=== PATIENT | female | born 1975 | race Hispanic/Latino ===

== ENCOUNTER 2017-09-13 17:02 | Emergency (ER) | payer BC ==
[~2017-09-13] VITALS: Ht 154.9 cm; Wt 79.4 kg
[2017-09-13] MEDS ORDERED: AVAPRO75 MG PO (17:25)
[2017-09-13] MEDS ORDERED: METHOTREXATE2.5 MG PO (17:25)
[2017-09-13] MEDS ORDERED: TOPROL XL50 MG PO (17:25)
[2017-09-13] MEDS ORDERED: PLAQUENIL200 MG PO (17:26)
[2017-09-13] MEDS ORDERED: ONDANSETRON ODT8 MG PO (18:59)
== END 2017-09-13 19:15 | disposition home or self-care (01) ==
LOC: ED 17:02
DX: K52.9 Noninfective gastroenteritis and colitis, unspecified (principal); K21.9 Gastro-esophageal reflux disease without esophagitis; Z79.899 Other long term (current) drug therapy
CPT/HCPCS: 80053; 81001; 84703; 85025; 96361; 96374; 99283; J2405; J7030

== ENCOUNTER 2018-07-07 19:37 | Emergency (ER) | payer BC ==
[~2018-07-07] VITALS: Ht 154.9 cm; Wt 79.4 kg
--- OUTSIDE RECORDS SUMMARY | ~2018-07-07 | XMS | Encounter Summary ---
Demographics + + + | Address | [address] | | | [place] [address] | + + + | Home Phone | | + + + | Preferred Language | Unknown | + + + | Marital Status | | + + + | Yarsanism Affiliation | Unknown | + + + | Race | Unknown | + + + | Ethnic Group | Unknown | + + + Author + + + | Author | [facility] | + + + | Organization | [facility] | + + + | Address [...] Team Providers + +------+ + | Care Gyn Physician Name | Role | Phone | + +------+ + PCP | Unavailable | + +------+ + Encounter Details +--------+--------+ + + + | Date | Type | Department | Care Team | Description | +--------+--------+ + + + | 05/07/ | Refill | [facility] | Brent Randolph, | Rheumatoid arthritis | | 2019 | | Rheumatology [address] | RN | of multiple sites | | | | [place] | | with negative | | | | [place] [address] | | rheumatoid factor | | | | [phone] | | (HCC) | +--------+--------+ + + + Social History + +-------+ [...] + + + as of this encounter Plan of Treatment +--------+---------+ + + + | Date | Type | Specialty | Care Team | Description | +--------+---------+ + + + | 07/08/ | Office | Rheumatology | Eduin, | High risk medication | | 2019 | Visit | | JULIANA Dailey [address] | use (Primary Dx); | | | | | [facility] | Rheumatoid arthritis | | | | | [place] [address] | of multiple sites | | | | | [phone] | with negative | | | | | | rheumatoid factor | | | | | | ([facility]); Long-term use | | | | | | of high-risk | | | | | | medication | +--------+---------+ + + + as of this encounter Visit Diagnoses + + | Diagnosis | + + | Rheumatoid arthritis of multiple sites with negative rheumatoid factor (HCC) | + +"
--- OUTSIDE RECORDS SUMMARY | ~2018-07-07 | XMS | Clinical Summary ---
Demographics + + + | Address | [address] | | | [place] [address] | + + + | Home Phone | | + + + | Preferred Language | Unknown | + + + | Marital Status | | + + + | Methodist Affiliation | Unknown | + + + | Race | Unknown | + + + | Ethnic Group | Unknown | + + + Author + + + | Author | [facility] | + + + | Organization | [facility] | + + + | Address [...] Team Providers + +------+ + | Care Lard Mixer Name | Role | Phone | + +------+ + PP | Unavailable | + +------+ + Allergies No Known Allergies Current Medications + + +--------+---------+------+------+-------+ | Prescription | Sig. | Disp. | Refills | Star | End | Statu | | | | | | t | Date | s | | | | | | Date | | | + + +--------+---------+------+------+-------+ | METOPROLOL | Take 50 mg by mouth. | | | | | Activ | | TARTRATE PO | | | | | | e | + + +--------+---------+------+------+-------+ | omeprazole | Take 20 mg by mouth | | | | | Activ | | (PRILOSEC) 20 MG EC | before breafast. | | | | | e | | tablet | | | | | | | + + +--------+---------+------+------+-------+ | | Take by mouth | | | | | Activ | | norethindrone-ethiny | daily. | | | | | e | | l estradiol-iron | | | | | | | | (ESTROSTEP FE) | | | | | | | | 1-31/03-10/04-35 | | | | | | | | MG-MCG TABS | | | | | | | + + +--------+---------+------+------+-------+ | methotrexate 2.5 | take 8 tablets by | 32 | 1 | / | | Activ | | MG | moutn once a week | tablet | | 07/29 | | e | | tabletIndications: | | | | 19 | | | | Rheumatoid Arthritis | | | | | | | + + +--------+---------+------+------+-------+ | diclofenac | Take 1 tablet by | 60 | 2 | / | | Activ | | (VOLTAREN) 75 MG EC | mouth 2 (two) times | tablet | | 6/20 | | e | | tabletIndications: | daily. | | | 19 | | | | Rheumatoid arthritis | | | | | | | | of multiple sites | | | | | | | | with negative | | | | | | | | rheumatoid factor | | | | | | | | ([facility]) | | | | | | | + + +--------+---------+------+------+-------+ | folic acid | Take 1 tablet by | 90 | 3 | / | | Activ | | (FOLVITE) 1 MG | mouth daily. | tablet | | 6/20 | | e | | tablet | | | | 19 | | | + + +--------+---------+------+------+-------+ | hydroxychloroquine | Take 2 tablets by | 60 | 2 | /2 | | Activ | | (PLAQUENIL) 200 MG | mouth daily. | tablet | | 6/20 | | e | | tabletIndications: | | | | 19 | | | | Rheumatoid arthritis | | | | | | | | of multiple sites | | | | | | | | with negative | | | | | | | | rheumatoid factor | | | | | | | | ([facility]) | | | | | | | + + +--------+---------+------+------+-------+ Active Problems + + + | Problem | Noted Date | + + + | Plantar fasciitis | 04/27/2017 | + + + + + | Last Assessment & Plan: Treatment options discussed. Continue | | conservative measures and if no improvement in 10-14 days, | | contact our office, consider referral to podiatry | + + + + + | Chronic left shoulder pain | 05/17/2015 | + + + + + | Last Assessment & Plan: Treatment options discussed- verbal | | consent givenInject L subacromial bursa today 40 mg of | | kenalog/LidocaineInstructed on post injection care and if no | | improvement in 101-4 days, notify our office | + + + + + | Rheumatoid arthritis of multiple sites with negative rheumatoid | 01/11/2015 | | factor (HCC) | | + + + + + | Last Assessment & Plan: No clinical evidence of active | | disease on today's examThe risks and benefits of treatment plan | | were discussed with her today.Continue Plaquenil 400 mg qd- send | | copy [facility] in [place] in | | 2018Continue methotrexate 20 mg once per weekContinue diclofenac | | 50 mg BID prnReturn to clinic 3-4 months | + + + + + | High risk medication use | 01/11/2015 | + + + + + | Last Assessment & Plan: Update labs today and continue to | | monitor closely while on DMARD and/or biologic medication. | | Counseled regarding medication compliance as well as potential | | toxicities with medications such as cytopenias, liver | | abnormalities and risks for infection, and the need for routine | | blood work monitoring. | + + Resolved Problems + + + + | Problem | Noted | Resolved | | | Date | Date | + + + + | Abnormal laboratory test result | 05/17/19 | | | | 16 | 7 | + + + + Encounters +--------+ + + + + | Date | Type | Specialty | Care Team | Description | +--------+ + + + + | 05/24/ | Documentati | | Eduin, | Other (FMLA) | | 2019 | on Only | | JULIANA Dailey | | +--------+ + + + + | 05/24/ | Telephone | | Eduin, | | | 2019 | | | JULIANA Dailey | | +--------+ + + + + | 05/07/ | Refill | | Brent Randolph, | Rheumatoid arthritis | | 2019 | | | RN | of multiple sites | | | | | | with negative | | | | | | rheumatoid factor | | | | | | (HCC) | +--------+ + + + + | 05/06/ | Documentati | | Rajinder Santillan | Other (Tricity | | 2019 | on Only | | TELMA Dee | Ortho; clinic notes) | +--------+ + + + + from Last 3 Months Social History + +-------+ +--------+------+ | Tobacco [...] on file | | + + + Last Filed Vital Signs + + + + | Vital Sign | Reading | Time Taken | + + + + | Blood Pressure | 152/87 | 04/01/2018 2:04 PM PST | + + + + | Pulse | 66 | 04/01/2018 2:04 PM PST | + + + + | Temperature | 36.4 C (97.6 F) | 04/01/2018 2:04 PM PST | + + + + | Respiratory Rate | 12 | 04/27/2017 1:32 PM PST | + + + + | Oxygen Saturation | 98% | 04/27/2017 1:32 PM PST | + + + + | Inhaled Oxygen | - | - | | Concentration | | | + + + + | Weight | 79.8 kg (176 lb) | 04/01/2018 2:04 PM PST | + + + + | Height | 154.9 cm (5' 1") | 04/01/2018 2:04 PM PST | + + + + | Body Mass Index | 33.25 | 04/01/2018 2:04 PM PST | + + + + Plan of Treatment +--------+---------+ + + + | Date | Type | Specialty | Care Team | Description | +--------+---------+ + + + | 07/08/ | Office | | Eduin, | High risk medication | | 2018 | Visit | | JULIANA Dailey [address] | use (Primary Dx); | | | | | [facility] | Rheumatoid arthritis | | | | | [place] [address] | of multiple sites | | | | | [phone] | with negative | | | | | | rheumatoid factor | | | | | | (HCC); Long-term use | | | | | | of high-risk | | | | | | medication | +--------+---------+ + + + + + + + + | Health Maintenance | Due Date | Last Done | Comments | + + + + + | Vaccine: | | | | | Dtap/Tdap/Td (1 - | 3 | | | | Tdap) | | | | + + + + + | Cervical Cancer | | | | | Screening (Pap) | 4 | | | + + + + + | Vaccine: Influenza | | | | | (Season Ended) | 9 | | | + + + + + Results Not on filefrom Last 3 Months Insurance +---------+--------+ +------+-------+ + | Payer | Benefi | Subscriber | Type | Phone | Address | | | t Plan | ID | | | | | | / | | | | | | | Group | | | | | +---------+--------+ +------+-------+ + | PREMERA | PREMER | [id number] | | | [address] [address] | | | A BLUE | [address] | | | [place], [place] | | | CARD | | | | [phone] | +---------+--------+ +------+-------+ + + +--------+ +--------+ + + | Guarantor Name | Accoun | Relation to | Date | Phone | Billing Address | | | t Type | Patient | of | | | | | | | | | | + +--------+ +--------+ + + | DEANNA VARGAS | Person | Self | [birth year] | Home: | [address] | | | al/Tahir | | 1976 | [phone] | [place] [address] | | | ozzy | | [phone] | | + +--------+ +--------+ + +
--- OUTSIDE RECORDS SUMMARY | ~2018-07-07 | XMS | Encounter Summary ---
Demographics + + + | Address | [address] | | | [place] [address] | + + + | Home Phone | | + + + | Preferred Language | Unknown | + + + | Marital Status | | + + + | Jain Affiliation | Unknown | + + + | Race | Unknown | + + + | Ethnic Group | Unknown | + + + Author + + + | Author | [facility] | + + + | Organization | [facility] | + + + | Address [...] Team Providers + +------+ + | Care Electrical Technician Instructor Name | Role | Phone | + [...] + + | 05/06/ | Documentati | [facility] | Rajinder Santillan | Other (Tricity | | 2019 | on Only | Rheumatology [address] | [place] | [place]; clinic notes) | | | | [address] | | | | | | [place] [address] | | | | | | [phone] | | | +--------+ + + + [...] of this encounter Progress Notes Rajinder Santillan, [facility] - 05/06/2018 11:59 PM PSTINCOMING:Clinic Notes FROM: Barbi Crouch DOS: 05/06/2018 REVIEWED BY:MICK STATUS: ready to scan SENT TO SCANNING ON: 05/24/2018 in this encounter Plan of Treatment +--------+---------+ + + + | Date | Type | Specialty | Care Team | Description | +--------+---------+ + + + | 07/08/ | Office | Rheumatology | Eduin, | High risk medication | | 2018 | Visit | | JULIANA Dailey [address] | use (Primary Dx); | | | | | [facility] | Rheumatoid arthritis | | | | | [place] [address] | of multiple sites | | | | | [phone] | with negative | | | | | | rheumatoid factor | | | | | | ([facility]); Long-term use | | | | | | of high-risk | | | | | | medication | +--------+---------+ + + + as of this encounter Visit Diagnoses Not on filein this encounter"
--- OUTSIDE RECORDS SUMMARY | ~2018-07-07 | XMS | Encounter Summary ---
Demographics + + + | Address | [address] | | | [place] [address] | + + + | Home Phone | | + + + | Preferred Language | Unknown | + + + | Marital Status | | + + + | Amish Affiliation | Unknown | + + + | Race | Unknown | + + + | Ethnic Group | Unknown | + + + Author + + + | Author | [facility] | + + + | Organization | [facility] | + + + | Address [...] Team Providers + +------+ + | Care Scrap Charger Name | Role | Phone | + +------+ + PCP | Unavailable | + +------+ + Encounter Details +--------+ + + + + | Date | Type | Department | Care Team | Description | +--------+ + + + + | 05/24/ | Telephone | [facility] | Eduin, | | | 2019 | | Rheumatology [address] | JULIANA Dailey [address] | | | | | [place] | [facility] | | | | | [place] [address] | [place] [address] | | | | | [phone] | [phone] | | | | | | | [...] | 07/08/ | Office | Rheumatology | Eduin | High risk medication | | 2019 | Visit | | JULIANA Dailey [address] | use (Primary Dx); | | | | | [facility] | Rheumatoid arthritis | | | | | [place] [address] | of multiple sites | | | | | [phone] | with negative | | | | | | rheumatoid factor | | | | | | (HCC); Long-term use | | | | | | of high-risk | | | | | | medication | +--------+---------+ + + + as of this encounter Visit Diagnoses Not on filein this encounter"
--- OUTSIDE RECORDS SUMMARY | ~2018-07-07 | XMS | Encounter Summary ---
Demographics + + + | Address | [address] | | | [place] [address] | + + + | Home Phone | | + + + | Preferred Language | Unknown | + + + | Marital Status | | + + + | Jain Affiliation | Unknown | + + + | Race | Unknown | + + + | Ethnic Group | Unknown | + + + Author + + + | Author | [facility] | + + + | Organization | [facility] | + + + | Address [...] Team Providers + +------+ + | Care Roller Printer Name | Role | Phone | + +------+ + PCP | Unavailable | + +------+ + Encounter Details +--------+ + + + + | Date | Type | Department | Care Team | Description | +--------+ + + + + | 05/24/ | Telephone | [facility] | Eduin, | | | 2019 | | Rheumatology [address] | JULIANA Dailey [address] | | | | | [place] | [facility] | | | | | [place] [address] | [place] [address] | | | | | [phone] | [phone] | | | | | | | [...] 2019 | Visit | | JULIANA Dailey 3[address] | use (Primary Dx); | | | | | [facility] | Rheumatoid arthritis | | | | | [place] [address] | of multiple sites | | | | | [phone] | with negative | | | | | | rheumatoid factor | | | | | | (HCC); Long-term use | | | | | | of high-risk | | | | | | medication | +--------+---------+ + + + as of this encounter Visit Diagnoses Not on filein this encounter"
--- OUTSIDE RECORDS SUMMARY | ~2018-07-07 | XMS | Encounter Summary ---
Demographics + + + | Address | [address] | | | [place] [address] | + + + | Home Phone | | + + + | Preferred Language | Unknown | + + + | Marital Status | | + + + | Scientologist Affiliation | Unknown | + + + | Race | Unknown | + + + | Ethnic Group | Unknown | + + + Author + + + | Author | [facility] | + + + | Organization | [facility] | + + + | Address [...] Team Providers + +------+ + | Care Pad Extractor Tender Name | Role | Phone | + [...] + + | 05/24/ | Documentati | [facility] | Eduin, | Other (FMLA) | | 2019 | on Only | Rheumatology [address] | Apple Lorenz, PUBLIC ADDRESS SYSTEM MECHANIC [address] | | | | | [place] | [facility] | | | | | [place] [address] | [place] [address] | | | | | [phone] | | | | | | | [...] | 07/08/ | Office | Rheumatology | Eudin, | High risk medication | | 2019 | Visit | | JULIANA Dailey 4549 | use (Primary Dx); | | | | | [facility] | Rheumatoid arthritis | | | | | [place] [address] | of multiple sites | | | | | [phone] | with negative | | | | | | rheumatoid factor | | | | | | (HCC); Long-term use | | | | | | of high-risk | | | | | | medication | +--------+---------+ + + + as of this encounter Visit Diagnoses Not on filein this encounter"
--- OUTSIDE RECORDS SUMMARY | ~2018-07-07 | XMS | Encounter Summary ---
Demographics + + + | Address | [address] | | | [place] [address] | + + + | Home Phone | | + + + | Preferred Language | Unknown | + + + | Marital Status | | + + + | Evangelical Affiliation | Unknown | + + + | Race | Unknown | + + + | Ethnic Group | Unknown | + + + Author + + + | Author | [facility] | + + + | Organization | [facility] | + + + | Address [...] Team Providers + +------+ + | Care Scrum Project Manager Name | Role | Phone | + +------+ + PCP | Unavailable | + +------+ + Encounter Details +--------+--------+ + + + | Date | Type | Department | Care Team | Description | +--------+--------+ + + + | 05/07/ | Refill | [facility] | Brent Randolph, | Rheumatoid arthritis | | 2019 | | Rheumatology [address] | RN | of multiple sites | | | | [place] | | with negative | | | | [place] [address] | | rheumatoid factor | | | | [phone] | | (HCC) | +--------+--------+ + + [...] 2019 | Visit | | JULIANA Dailey 7[address] | use (Primary Dx); | | | | | [facility] | Rheumatoid arthritis | | | | | [place] [address] | of multiple sites | | | | | [phone] | with negative | | | | | | rheumatoid factor | | | | | | ([facility]); Long-term use | | | | | | of high-risk | | | | | | medication | +--------+---------+ + + + as of this encounter Visit Diagnoses + + | Diagnosis | + + | Rheumatoid arthritis of multiple sites with negative rheumatoid factor (HCC) | + +"
--- OUTSIDE RECORDS SUMMARY | ~2018-07-07 | XMS | Encounter Summary ---
Demographics + + + | Address | [address] | | | [place] [address] | + + + | Home Phone | | + + + | Preferred Language | Unknown | + + + | Marital Status | | + + + | Episcopalian Affiliation | Unknown | + + + | Race | Unknown | + + + | Ethnic Group | Unknown | + + + Author + + + | Author | [facility] | + + + | Organization | [facility] | + + + | Address [...] Providers + +------+ + | Care Scrap Hooker Name | Role | Phone | + [...] + + | 05/06/ | Documentati | [facility] | Rajinder Santillan | Other (Tricity | | 2019 | on Only | Rheumatology [address] | TELMA Dee | [place]; clinic notes) | | | | [address] | | | | | | [place] [address] | | | | | | [phone] | | | +--------+ + + + [...] of this encounter Progress Notes Rajinder Santillan, [facility] - 05/06/2018 11:59 PM PSTINCOMING:Clinic Notes FROM: [...] 2018 | Visit | | JULIANA Dailey [address] | use (Primary Dx); | | | | | [facility] | Rheumatoid arthritis | | | | | [place] [address] | of multiple sites | | | | | [phone] | with negative | | | | | | rheumatoid factor | | | | | | ([facility]); Long-term use | | | | | | of high-risk | | | | | | medication | +--------+---------+ + + + as of this encounter Visit Diagnoses Not on filein this encounter"
--- OUTSIDE RECORDS SUMMARY | ~2018-07-07 | XMS | Clinical Summary ---
Demographics + + + | Address | [address] | | | [place] [address] | + + + | Home Phone | | + + + | Preferred Language | Unknown | + + + | Marital Status | | + + + | Islam Affiliation | Unknown | + + + | Race | Unknown | + + + | Ethnic Group | Unknown | + + + Author + + + | Author | [facility] | + + + | Organization | [facility] | + + + | Address [...] Team Providers + +------+ + | Care Compensation Intern Name | Role | Phone | + [...] | | | | | | | ([facility]) | | | | | | | [...] | | | | | | | ([facility]) | | | | | | | [...] [facility] in [place] in | | 2018Continue methotrexate 20 mg [...] 2018 | Visit | | JULIANA Dailey 7[address] | use (Primary Dx); | | | | | [facility] | Rheumatoid arthritis | | | | | [place] [address] | of multiple sites | | | | | [phone] | with negative | | | | [...] +------+-------+ + | PREMERA | PREMER | [id number] | | | [address] [address] | | | A BLUE | [address] | | | [place], [place] | | | CARD | | | | [phone] | +---------+--------+ +------+-------+ + + +--------+ +--------+ [...] | 1976 | [phone] | [place] [address] | | | ozzy | | | [phone] | | + +--------+ +--------+ + +
--- OUTSIDE RECORDS SUMMARY | ~2018-07-07 | XMS | Encounter Summary ---
Demographics + + + | Address | [address] | | | [place] [address] | + + + | Home Phone | | + + + | Preferred Language | Unknown | + + + | Marital Status | | + + + | Tenriism Affiliation | Unknown | + + + | Race | Unknown | + + + | Ethnic Group | Unknown | + + + Author + + + | Author | [facility] | + + + | Organization | [facility] | + + + | Address [...] Team Providers + +------+ + | Care Safety Supervisor Name | Role | Phone | + [...] + + | 05/24/ | Documentati | [facility] | Eduin, | Other (FMLA) | | 2019 | on Only | Rheumatology [address] | Apple Lorenz, RENT AND MISCELLANEOUS REMITTANCE CLERK [address] | | | | | [place] | [facility] | | | | | [place] [address] | [place] [address] | | | | | [phone] | [phone] | | | | | | | [...] 2019 | Visit | | JULIANA Dailey 4695 | use (Primary Dx); | | | | | [facility] | Rheumatoid arthritis | | | | | [place] [address] | of multiple sites | | | | | [phone] | with negative | | | | | | rheumatoid factor | | | | | | (HCC); Long-term use | | | | | | of high-risk | | | | | | medication | +--------+---------+ + + + as of this encounter Visit Diagnoses Not on filein this encounter"
[~2018-07-07 19:37] MED LIST: AVAPRO75 MG PO; METHOTREXATE2.5 MG PO; ONDANSETRON ODT8 MG PO; PLAQUENIL200 MG PO; TOPROL XL50 MG PO
--- NOTE | 2018-07-08 07:47 | EKG ---
[facility] [address] [facility] [place], [place] [address] Signed Sinus rhythm with fusion complexes Incomplete right bundle branch block Borderline ECG No previous ECGs available Confirmed by LINDA MONTES MD ([id number]) on 07/08/2018 7:47:46 AM Electronically Signed By: LINDA MONTES MD 07/08/18 0747 PATIENT NAME: ARMANI VARGAS Electrocardiogram DATE OF : 71 PHYSICIAN: LINDA MONTES MD REPORT #: [id number] REPORT IS CONFIDENTIAL AND NOT TO BE RELEASED WITHOUT AUTHORIZATION
== END 2018-07-07 21:51 | disposition home or self-care (01) ==
LOC: ED 19:37
DX: R20.2 Paresthesia of skin (principal); I10 Essential (primary) hypertension; M06.9 Rheumatoid arthritis, unspecified; K21.9 Gastro-esophageal reflux disease without esophagitis; Z79.899 Other long term (current) drug therapy
CPT/HCPCS: 70450; 71045; 80053; 84484; 85025; 85610; 85730; 93005; 93010; 99284-25

== ENCOUNTER 2018-07-14 19:59 | Emergency (ER) | payer BC ==
[~2018-07-14] VITALS: Ht 154.9 cm; Wt 79.4 kg
--- OUTSIDE RECORDS SUMMARY | ~2018-07-14 | XMS | Encounter Summary ---
Demographics + + + | Address | [address] | | | [place] [address] | + + + | Home Phone | | + + + | Preferred Language | Unknown | + + + | Marital Status | | + + + | Confucianist Affiliation | Unknown | + + + | Race | Unknown | + + + | Ethnic Group | Unknown | + + + Author + + + | Author | [facility] | + + + | Organization | [facility] | + + + | Address | Unknown | + + + | Phone | Unavailable | + + + Support + + +---------+ + | Name | Relationship | Address | Phone | + + +---------+ + | Message,Detailed | ECON | Unknown | | + + +---------+ + | Triston Robles | ECON | Unknown | | + + +---------+ + Care Team Providers + +------+ + | Care Cone Sewer Name | Role | Phone | + +------+ + PCP | Unavailable | + +------+ + Reason for Visit +--------+ + | Reason | Comments | +--------+ + | Other | [facility]; clinic notes | +--------+ + Encounter Details +--------+ + + + + | Date | Type | Department | Care Team | Description | +--------+ + + + + | 05/06/ | Documentati | [facility] | Rajinder Santillan | Other ([facility] | | 2019 | on Only | Rheumatology [address] | TELMA Dee | [place]; clinic notes) | | | | [address] | | | | | | [place] [address] | | | | | | [phone] | | | +--------+ + + + + Social History + +-------+ +--------+------+ | Tobacco Use | Types | Packs/Day | Years | Date | | | | | Used | | + +-------+ +--------+------+ | Never Smoker | | | | | + +-------+ +--------+------+ + +---+---+---+ | Smokeless Tobacco: | | | | | Never Used | | | | + +---+---+---+ + + +---------+ + | Alcohol Use | Drinks/We | oz/Week | Comments | | | ek | | | + + +---------+ + | No | 0 | 0.0 | | | | Standard | | | | | drinks or | | | | | | | | | | equivalen | | | | | t | | | + + +---------+ + + + + | Sex Assigned at | Date Recorded | | | | + + + | Not on file | | + + + as of this encounter Progress Notes Rajinder Santillan, [facility] - 05/06/2018 11:59 PM PSTINCOMING:Clinic Notes FROM: Barbi Crouch DOS: 05/06/2018 REVIEWED BY:MICK STATUS: ready to scan SENT TO SCANNING ON: 05/24/2018 in this encounter Plan of Treatment Not on fileas of this encounter Visit Diagnoses Not on filein this encounter"
--- OUTSIDE RECORDS SUMMARY | ~2018-07-14 | XMS | Encounter Summary ---
Demographics + + + | Address | [address] | | | [place] [address] | + + + | Home Phone | | + + + | Preferred Language | Unknown | + + + | Marital Status | | + + + | Worship Affiliation | Unknown | + + + | Race | Unknown | + + + | Ethnic Group | Unknown | + + + Author + + + | Author | [facility] | + + + | Organization | [facility] | + + + | Address [...] Team Providers + +------+ + | Care Math And Science Instructor Name | Role | Phone | + +------+ + PCP | Unavailable | + +------+ + Encounter Details +--------+ + + + + | Date | Type | Department | Care Team | Description | +--------+ + + + + | 05/24/ | Telephone | [facility] | Eduin, | | | 2019 | | Rheumatology [address] | [address] | | | | | [place] | [facility] | | | | | [place] [address] | [place] [address] | | | | | [phone] | [phone] | | | | | | | | +--------+ + + + [...] as of this encounter Plan of Treatment Not on fileas of this encounter Visit Diagnoses Not on filein this encounter"
--- OUTSIDE RECORDS SUMMARY | ~2018-07-14 | XMS | Encounter Summary ---
Demographics + + + | Address | [address] | | | [place] [address] | + + + | Home Phone | | + + + | Preferred Language | Unknown | + + + | Marital Status | | + + + | Jehovah'S Witness Affiliation | Unknown | + + + | Race | Unknown | + + + | Ethnic Group | Unknown | + + + Author + + + | Author | [facility] | + + + | Organization | [facility] | + + + | Address [...] Team Providers + +------+ + | Care Client Resource Specialist Name | Role | Phone | + +------+ + PCP | Unavailable | + +------+ + Reason for Visit +--------+ + | Reason | Comments | +--------+ + | Other | FMLA | +--------+ + Encounter Details +--------+ + + + + | Date | Type | Department | Care Team | Description | +--------+ + + + + | 05/24/ | Documentati | [facility] | Eduin, | Other (FMLA) | | 2019 | on Only | Rheumatology [address] | [address], [address] | | | | | [place] | [facility] | | | | | [place] [address] | [place] [address] | | | | | [phone] | [phone] | | | | | | | [...]
--- OUTSIDE RECORDS SUMMARY | ~2018-07-14 | XMS | Encounter Summary ---
Demographics + + + | Address | [address] | | | [place] [address] | + + + | Home Phone | | + + + | Preferred Language | Unknown | + + + | Marital Status | | + + + | Yazidi Affiliation | Unknown | + + + | Race | Unknown | + + + | Ethnic Group | Unknown | + + + Author + + + | Author | [facility] | + + + | Organization | [facility] | + + + | Address [...] Team Providers + +------+ + | Care Contracts Specialist Name | Role | Phone | + +------+ + PCP | Unavailable | + +------+ + Encounter Details +--------+--------+ + + + | Date | Type | Department | Care Team | Description | +--------+--------+ + + + | 05/07/ | Refill | [facility] | Brent Randolph, | Rheumatoid arthritis | | 2019 | | Rheumatology [address] | RN | of multiple sites | | | | [place] | | with negative | | | | [place] [address] | | rheumatoid factor | | | | [phone] | | (HCC) | +--------+--------+ + + [...] on fileas of this encounter Visit Diagnoses + + | Diagnosis | + + | Rheumatoid arthritis of multiple sites with negative rheumatoid factor (HCC) | + +"
--- OUTSIDE RECORDS SUMMARY | ~2018-07-14 | XMS | Encounter Summary ---
Demographics + + + | Address | [address] | | | [place] [address] | + + + | Home Phone | | + + + | Preferred Language | Unknown | + + + | Marital Status | | + + + | Uatsdin Affiliation | Unknown | + + + | Race | Unknown | + + + | Ethnic Group | Unknown | + + + Author + + + | Author | [facility] | + + + | Organization | [facility] | + + + | Address [...] Team Providers + +------+ + | Care Fur Trimming Machine Operator Name | Role | Phone | + [...] + + | 05/24/ | Documentati | [facility] | Eduin, | Other (FMLA) | | 2019 | on Only | Rheumatology [address] | Apple [address]z, [address] | | | | | [place] | [facility] | | | | | [place] [address] | [place] [address] | | | | | [phone] | [phone] | | | | | | | [...]
--- OUTSIDE RECORDS SUMMARY | ~2018-07-14 | XMS | Clinical Summary ---
Demographics + + + | Address | [address] | | | [place] [address] | + + + | Home Phone | | + + + | Preferred Language | Unknown | + + + | Marital Status | | + + + | Confucianist Affiliation | Unknown | + + + | Race | Unknown | + + + | Ethnic Group | Unknown | + + + Author + + + | Author | [facility] | + + + | Organization | [facility] | + + + | Address [...] Team Providers + +------+ + | Care Solution Sales Senior Executive Name | Role | Phone | + [...] | | | | | | | ([facility]) | | | | | | [...] | | | | | | | ([facility]) | | | | | | [...] [facility] [place] in | | 2018Continue methotrexate 20 mg [...] | +--------+ + + + + | 07/14/ | Refill | | Eduin, | | 2018 | | | [address] | | +--------+ + + + + | 05/24/ | Documentati | | Eduin | Jorje (FMLA) | | 2018 | on Only | | [place] | | +--------+ + + + + | 05/24/ | Telephone | | Eduin, | | | 2018 | | | [address] | | [...] | 2019 | on Only | | M, 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; clinic notes) | +--------+ + [...] + + + + Plan of Treatment + + + + + | Health [...] +------+-------+ + | PREMERA | PREMER | [id number] | | | [address] [address] | | | A BLUE | [address] | | | [place], [place] | | | CARD | | | | [phone] | +---------+--------+ +------+-------+ + + +--------+ +--------+ + + | Guarantor Name | Accoun | Relation to | Date | Phone | Billing Address | | | t Type | Patient | of | | | | | | | | | | + +--------+ +--------+ + + | DEANNA VARGAS | Person | Self [birth year] | Home: | [address] | | | al/Fam | | 1976 | [phone] | [place] [address] | | | [place]zy | | | [phone] | | + +--------+ +--------+ + +
--- OUTSIDE RECORDS SUMMARY | ~2018-07-14 | XMS | Encounter Summary ---
Demographics + + + | Address | [address] | | | [place] [address] | + + + | Home Phone | | + + + | Preferred Language | Unknown | + + + | Marital Status | | + + + | Lutheran Affiliation | Unknown | + + + | Race | Unknown | + + + | Ethnic Group | Unknown | + + + Author + + + | Author | [facility] | + + + | Organization | [facility] | + + + | Address [...] Team Providers + +------+ + | Care Car Rental Manager Name | Role | Phone | + +------+ + PCP | Unavailable | + +------+ + Encounter Details +--------+--------+ + + + | Date | Type | Department | Care Team | Description | +--------+--------+ + + + | 05/07/ | Refill | [facility] | Brent Randolph, | Rheumatoid arthritis | | 2019 | | Rheumatology [address] | RN | of multiple sites | | | | [place] | | with negative | | | | [place] [address] | | rheumatoid factor | | | | [phone] | | (HCC) | +--------+--------+ + + [...]
--- OUTSIDE RECORDS SUMMARY | ~2018-07-14 | XMS | Encounter Summary ---
Demographics + + + | Address | [address] | | | [place] [address] | + + + | Home Phone | | + + + | Preferred Language | Unknown | + + + | Marital Status | | + + + | Uatsdin Affiliation | Unknown | + + + | Race | Unknown | + + + | Ethnic Group | Unknown | + + + Author + + + | Author | [facility] | + + + | Organization | [facility] | + + + | Address [...] Team Providers + +------+ + | Care Prescription Clerk Name | Role | Phone | + +------+ + PCP | Unavailable | + +------+ + Encounter Details +--------+ + + + + | Date | Type | Department | Care Team | Description | +--------+ + + + + | 05/24/ | Telephone | [facility] | Eduin, | | | 2019 | | Rheumatology [address] | [address] | | | | | [place] | [facility] | | | | | [place] [address] | [place] [address] | | | | | [phone] | [phone] | | | | | | | [...]
--- OUTSIDE RECORDS SUMMARY | ~2018-07-14 | XMS | Encounter Summary ---
Demographics + + + | Address | [address] | | | [place] [address] | + + + | Home Phone | | + + + | Preferred Language | Unknown | + + + | Marital Status | | + + + | Catholic Affiliation | Unknown | + + + | Race | Unknown | + + + | Ethnic Group | Unknown | + + + Author + + + | Author | [facility] | + + + | Organization | [facility] | + + + | Address [...] Team Providers + +------+ + | Care Racecourse Barrier Attendant Name | Role | Phone | + [...] + + | 05/06/ | Documentati | [facility] | Rajinder Santillan | Other ([facility] | | 2019 | on Only | Rheumatology [address] | [address] | [place]; clinic notes) | | | | [address] | | | | | | [place] [address] | | | | | | [phone] | | | +--------+ + + + [...] of this encounter Progress Notes Rajinder Santillan, [facility] - 05/06/2018 11:59 PM PSTINCOMING:Clinic Notes FROM: Barbi Crouch DOS: 05/06/2018 REVIEWED BY:MICK STATUS: ready to scan SENT TO SCANNING ON: 05/24/2018 in this encounter Plan of Treatment Not on fileas of this encounter Visit Diagnoses Not on filein this encounter"
--- OUTSIDE RECORDS SUMMARY | ~2018-07-14 | XMS | Encounter Summary ---
Demographics + + + | Address | [address] | | | [place] [address] | + + + | Home Phone | | + + + | Preferred Language | Unknown | + + + | Marital Status | | + + + | Zoroastrian Affiliation | Unknown | + + + | Race | Unknown | + + + | Ethnic Group | Unknown | + + + Author + + + | Author | [facility] | + + + | Organization | [facility] | + + + | Address [...] Team Providers + +------+ + | Care Mayonnaise Mixer Name | Role | Phone | + +------+ + PCP | Unavailable | + +------+ + Reason for Visit + + + | Reason | Comments | + + + | Medication Refill | | + + + Encounter Details +--------+--------+ + + + | Date | Type | Department | Care Team | Description | +--------+--------+ + + + | 07/14/ | Refill | [facility] | Eduin, | | | 2018 | | Rheumatology [address] | [address] | | | | | [place] | [facility] | | | | | [place] [address] | [place] [address] | | | | | [phone] | [phone] | | | | | | | | +--------+--------+ + + + Social History [...]
--- OUTSIDE RECORDS SUMMARY | ~2018-07-14 | XMS | Encounter Summary ---
Demographics + + + | Address | [address] | | | [place] [address] | + + + | Home Phone | | + + + | Preferred Language | Unknown | + + + | Marital Status | | + + + | Adventism Affiliation | Unknown | + + + | Race | Unknown | + + + | Ethnic Group | Unknown | + + + Author + + + | Author | [facility] | + + + | Organization | [facility] | + + + | Address [...] Team Providers + +------+ + | Care Bean Dumper Name | Role | Phone | + [...] + + | 07/14/ | Refill | [facility] | Eduin, | | | 2018 | | Rheumatology [address] | [address] | | | | | [place] | [facility] | | | | | [place] [address] | [place] [address] | | | | | [phone] | [phone] | | | | | | | [...]
--- OUTSIDE RECORDS SUMMARY | ~2018-07-14 | XMS | Clinical Summary ---
Demographics + + + | Address | [address] | | | [place] [address] | + + + | Home Phone | | + + + | Preferred Language | Unknown | + + + | Marital Status | | + + + | Muslim Affiliation | Unknown | + + + | Race | Unknown | + + + | Ethnic Group | Unknown | + + + Author + + + | Author | [facility] | + + + | Organization | [facility] | + + + | Address [...] Team Providers + +------+ + | Care Airfield Manager Name | Role | Phone | [...] | | | | | | | ([facility]) | | | | | | | [...] | | | | | | | ([facility]) | | | | | | | [...] copy of [facility] at [facility] in [place] in | | 2018Continue methotrexate 20 mg [...] 2019 | on Only | | M, ORGANIZATIONAL EFFECTIVENESS DIRECTOR | Ortho; clinic notes) | +--------+ + [...] +------+-------+ + | PREMERA | PREMER | [id number] | | | [address] [address] | | | A BLUE | [address] | | | [place], [place] | | | CARD | | | | [phone] | +---------+--------+ +------+-------+ + + +--------+ +--------+ [...] | | al/Fam | | 1976 | [phone] | [place] [address] | | | ozzy | | | [phone] | | + +--------+ +--------+ + +
--- OUTSIDE RECORDS SUMMARY | 2018-07-14 20:02 | XMS ---
PreManage Notification: ARMANI VARGAS Security Corporate Webmaster Events No recent Security Events currently on file CRITERIA MET - [facility] - 2 Visits in 30 Days CARE PROVIDERS There are no care providers on record at this time. Rosy has no Care Guidelines for this patient. Stas VISIT COUNT (12 MO.) [address] [facility] TOTAL 3 NOTE: Visits indicate total known visits. ED/C VISIT TRACKING (12 MO.) 07/14/2018 19:59 [facility] [place] TYPE: Emergency COMPLAINT: - DIFFICULTY BREATHING 07/07/2018 19:37 [facility] [place] TYPE: Emergency COMPLAINT: - FACIAL TINGLING/NUMBNESS DIAGNOSES: - Localized swelling, mass and lump, head - Rheumatoid arthritis, unspecified - Other oil heaterman (current) drug therapy - Paresthesia of skin - Essential (primary) hypertension - Gastro-esophageal reflux disease without esophagitis 09/13/2017 17:02 [facility] [place] TYPE: Emergency COMPLAINT: - FEVER,VOMITING,ABD PAIN DIAGNOSES: - Other [facility] ([facility] drug therapy - Noninfective gastroenteritis and colitis, unspecified - Gastro-esophageal reflux disease without esophagitis - Fever, unspecified INPATIENT VISIT TRACKING (12 MO.) No inpatient visits to display in this time frame [email or web address]
[2018-07-14] MEDS ORDERED: FOLIC ACID0.4 MG PO (20:16)
[2018-07-14] MEDS ORDERED: OMEPRAZOLE10 MG PO (20:16)
--- NOTE | 2018-07-15 20:20 | EKG ---
[facility] [address] [facility] [address] [place] [address] Signed Sinus rhythm with occasional and consecutive premature ventricular complexes Abnormal ECG When compared with ECG of 07-JUL-2018 20:04, fusion complexes are no longer present premature ventricular complexes are now present Confirmed by RIKY CORREA MD ([id number]) on 07/15/2018 8:20:39 PM Electronically Signed By: RIKY CORREA MD 07/15/18 2020 PATIENT NAME: ALICIAARMANI Electrocardiogram DATE OF : 71 PHYSICIAN: RIKY CORREA MD REPORT #: [id number] REPORT IS CONFIDENTIAL AND NOT TO BE RELEASED WITHOUT AUTHORIZATION
== END 2018-07-14 22:02 | disposition home or self-care (01) ==
LOC: ED 19:59
DX: R06.00 Dyspnea, unspecified (principal); I10 Essential (primary) hypertension; M06.9 Rheumatoid arthritis, unspecified; K21.9 Gastro-esophageal reflux disease without esophagitis; Z79.899 Other long term (current) drug therapy
CPT/HCPCS: 71046; 80053; 83735; 83880; 84484; 85025; 85379; 93005; 93010; 99285-25